=== PATIENT | female | born 1940 | race African-American/Black ===

== ENCOUNTER → 2016-08-21 | Outpatient (CLI) | payer MEDICARE ==
[~2016-08-21] MED LIST: BUPR-86 PO; ENOX80P SQ; FLUT1SPR9 INH; IRON325T2 PO; LACO100 PO; MEMA1TAB2; SYNT137T PO; WARF7.5T4 PO
--- NOTE | 2016-08-22 08:34 | RSPPFT ---
DATE OF PROCEDURE: 08/21/16 COMMENTS: VOLUMES DYNAMIC: FVC low normal; FEV1 mildly reduced. STATIC: VTG mildly increased; RV severely increased; TLC normal. FLOWS: FEV1% moderately reduced; FEF 25-75 severely reduced. DIFFUSON: Unable to complete. FLOW VOLUME LOOP: Pattern of variable intrathoracic airways obstruction. IMPRESSION: Mild to moderate obstructive ventilatory defect with hyperinflation and significant improvement post-bronchodilator. Patient unable to perform diffusion capacity.
== END ==
LOC: HRSP 12:55
PROVIDERS: ATTEND Internal Medicine Cardiovascular Disease
DX: R06.02 Shortness of breath (principal)
CPT/HCPCS: 94060; 94726; 94729

== ENCOUNTER → 2017-10-28 | Outpatient (CLI) | payer MEDICARE, OTHER | LOC: CLAB 14:10 | PROVIDERS: ATTEND Psychiatry & Neurology Neurology | DX: M31.6 Other giant cell arteritis (principal) | CPT/HCPCS: 36415; 85652 ==

== ENCOUNTER → 2017-11-20 | Outpatient (CLI) | payer MEDICARE, OTHER | LOC: CLAB 12:39 | PROVIDERS: ATTEND Psychiatry & Neurology Neurology | DX: M31.6 Other giant cell arteritis (principal) | CPT/HCPCS: 36415; 85652 ==